=== PATIENT | male | born 1950 | race Asian ===

== ENCOUNTER 2017-08-25 11:01 | Outpatient (CLI) | payer OTHER ==
[2017-08-25] MEDS ORDERED: IOPAMIDOL-300 100 ML VIAL ONE (11:27)
[2017-08-25 11:47] LABS: CREATININE 0.9 mg/dL (0.6-1.2)
[2017-08-25] MEDS ORDERED: IOPAMIDOL-300 100 ML VIAL IVP ONE (12:52)
--- NOTE | 2017-08-25 12:59 | CT Report ---
CT NECK WITH CONTRAST: 08/25/2017 CLINICAL INDICATION: Swelling right jaw, mass. TECHNIQUE: Axial CT images of the neck were obtained with 80 mL Isovue 300 intravenously. COMPARISON: No previous exam is available for comparison. FINDINGS: The visualized intraorbital contents are unremarkable. Chronic sinus disease is seen in the ethmoid air cells and maxillary sinuses. The salivary glands appear unremarkable. The palpable abnormality in the right neck lies superficial to the right jugulodigastric muscle, measuring 3.5 x 2.1 x 1.9 cm, and demonstrates Hounsfield units higher than expected for a simple cyst. This likely represents a necrotic lymph node, given the location and ovoid shape. Other differential considerations would include a complex branchial cleft cyst. Smaller bilateral anterior and posterior triangle lymph nodes are noted. The thyroid gland is unremarkable. The vascular structures enhance normally. Osseous structures demonstrate degenerative changes. Limited evaluation of the lung apices demonstrates a 3.0 x 2.2 x 1.7 cm nodule in the posterior left upper lung. Further evaluation with PET CT would likely be helpful. IMPRESSION: 1. PALPABLE ABNORMALITY LIKELY CORRELATES WITH A NECROTIC LYMPH NODE IN THE RIGHT NECK. COMPLEX BRANCHIAL CLEFT CYST IS FELT TO BE LESS LIKELY. 2. LEFT UPPER LUNG PULMONARY LESION. CONSIDER FURTHER EVALUATION WITH A PET CT. CT DOSE REDUCTION STATEMENT In accordance with CT protocol optimization, one or more of the following dose reduction techniques were utilized for this exam: automated exposure control, adjustment of mA and/or KV based on patient size, or use of iterative reconstructive technique. TD: 08/25/2017 12:48
== END 2017-08-25 11:02 | disposition home or self-care (01) ==
LOC: DI 11:01
PROVIDERS: ATTEND Specialist
DX: R22.1 Localized swelling, mass and lump, neck (principal); R91.1 Solitary pulmonary nodule
CPT/HCPCS: 36415; 70491; 82565; Q9967

== ENCOUNTER 2023-09-03 09:50 | Emergency (ER) | payer OTHER ==
--- NOTE | 2023-09-03 10:04 | ED Physician Documentation ---
PD HPI CHEST PAIN - Stated complaint Stated Complaint: CP - History obtained from History obtained from: Patient - History of Present Illness Timing - onset: How many weeks ago (2-3) Timing - onset during: Light activity, Other (coughing) Timing - duration: Seconds Timing - details: Intermittant (he has had some anterior chest pain occurring with coughing for past 2-3 weeks. NO dyspnea.) Quality: Aching, Pain Location: Substernal, Epigastric Improved by: Rest Worsened by: Other (cough). No: Palpation, Position Associated symptoms: Cough. No: Shortness of air, Nausea, Feeling faint / dizzy Review of Systems Constitutional: denies: Fever, Chills Nose: reports: Congestion. denies: Rhinorrhea / runny nose Throat: denies: Sore throat Cardiac: denies: Pedal edema, Calf pain Respiratory: reports: Dyspnea, Cough. denies: Wheezing PD PAST MEDICAL HISTORY - Past Medical History Cardiovascular: None Respiratory: None - Present Medications Home Medications: Ambulatory Orders Medication Instructions Recorded Confirmed Benzonatate [Tessalon] 100 mg PO TID PRN #20 cap 09/03/23 Meloxicam [Mobic] 7.5 mg PO BID 10 Days #20 tablet 09/03/23 Rosuvastatin Calcium 40 mg PO DAILY 09/03/23 09/03/23 Sucralfate [Carafate] 1 gm PO HS 10 Days #100 ml 09/03/23 metFORMIN [Glucophage] 500 mg PO BIDWM 09/03/23 09/03/23 - Allergies Allergies/Adverse Reactions: Allergies Allergy/AdvReac Type Severity Reaction Status Date / Time No Known Drug Allergies Allergy Verified 09/03/23 10:06 PD ED PE NORMAL - Vitals Vital signs reviewed: Yes - General General: Alert and oriented X 3, No acute distress, Well developed/nourished - HEENT HEENT: Pharynx benign - Neck Neck: Supple, no meningeal sign, No adenopathy - Cardiac Cardiac: RRR, No murmur - Respiratory Respiratory: Clear bilaterally - Abdomen Abdomen: Normal bowel sounds, Soft, Non distended, Other (some tender epigastric area without guarding. Not tender RUQ> ) - Back Back: No CVA TTP - Derm Derm: Normal color, Warm and dry - Extremities Extremities: Normal ROM s pain, No calf tenderness / cord - Neuro Neuro: Alert and oriented X 3, No motor deficit, Normal speech Results - Vitals Vitals: Oxygen O2 Source Room air - EKG (time done) in ER EKG releavant findings:: EKG personally interpreted by author of this note. Relevant findings are: Rhythm: NSR [place]: Normal Intervals: Normal MA QRS: Normal Ischemia: Normal ST segments. No: ST elevation c/w ischemia, ST depression - Labs Labs: Laboratory Tests 09/03/23 09/03/23 10:36 10:36 WBC 9.0 RBC 4.41 L Hgb 13.0 L Hct 40.3 L MCV 91.4 MCH 29.5 MCHC 32.3 RDW 12.5 Plt Count 165 MPV 10.4 Neut # (Auto) 5.5 Lymph # (Auto) 1.6 Wetzel # (Auto) 1.2 H Eos # (Auto) 0.6 Baso # (Auto) 0.1 Absolute Nucleated RBC 0.00 Nucleated RBC % 0.0 Sodium 140 Potassium 4.2 Chloride 106 Carbon Dioxide 25 Anion Gap 9.0 BUN 24 H Creatinine 1.4 H Estimated GFR (MDRD) 50 L Glucose 111 H Calcium 9.4 Magnesium 1.8 Total Bilirubin 0.6 AST 23 ALT 21 Alkaline Phosphatase 46 Troponin I High Sens < 2.3 L Total Protein 7.1 Albumin 4.4 Globulin 2.7 Albumin/Globulin Ratio 1.6 Lipase 56 - Rads (name of study) chest xray Relevant Findings:: Prelim report reviewed (no acute processs. No infiltrates. ), EMP independent interpretation of test PD Medical Decision Making - ED course Complexity details: reviewed results, considered differential (gallo anterior chest pain with coughing with some dyapnea but no wheezing. No infiltrates. Normal ECG and trop. ), d/w patient Departure - Departure Disposition: Home, Self Care Clinical Impression: Cough, persistent, Pleuritic chest pain, Upper abdominal pain Condition: Stable Record reviewed to determine appropriate education?: Yes Prescriptions: Sucralfate [Carafate] 1 gm PO HS 10 Days #100 ml Meloxicam [Mobic] 7.5 mg PO BID 10 Days #20 tablet Benzonatate [Tessalon] 100 mg PO TID PRN #20 cap PRN Reason: Cough Comments: Your EKG and troponin tests are normal. No signs of heart injury or heart failure. Your chest x-ray is clear without any signs of pneumonia or fluid or previous lesions. No obvious scar tissue. At this point it does sound like your stomach pain is probably some irritation of the stomach or gas or heartburn. The famotidine daily for 3 to 4 weeks makes sense. I could also suggest you add sacral fate at night before bedtime to help coat the stomach overnight. Regarding the chest pain with coughing, will primarily try to reduce the cough. You are given a dose of a dexamethasone steroid to help with inflammation of the airways and then I prescribed benzonatate to help with cough. Regarding the pain, I wrote for a anti-inflammatory that is a little easier on the stomach called meloxicam twice daily with food for the next week. Add Tylenol every 4-6 hours if needed for pain. Follow-up with your primary care if not improved over the next several days to week. Forms: PCP List Discharge Date/Time: 09/03/23 12:44
[2023-09-03 10:15] VITALS: O2SAT 100
--- NOTE | 2023-09-03 10:44 | XRAY Report ---
PROCEDURE: Chest 1V INDICATIONS: Chest pain TECHNIQUE: One view of the chest was acquired. COMPARISON: None. FINDINGS: Surgical changes and devices: None. Lungs and pleura: No pleural effusions or pneumothorax. Lungs are clear. Mediastinum: Mediastinal contours appear normal. Heart size is normal. Bones and chest wall: No suspicious bony lesions. Overlying soft tissues appear unremarkable. IMPRESSION: No acute cardiopulmonary process. Reviewed by: Jon Herrera MD on 09/03/2023 9:42 AM JUDAH Approved by: Jon Herrera MD on 09/03/2023 9:42 AM JUDAH Station ID: [id number]
[2023-09-03 10:52] LABS: BASOPHILS # (AUTO) 0.1 10^3/uL (0.0-0.1); BASOPHILS % (AUTO) 0.8 %; EOSINOPHILS # (AUTO) 0.6 10^3/uL (0.0-0.7); EOSINOPHILS % (AUTO) 6.5 %; HCT - HEMATOCRIT 40.3 % (42.0-52.0); LYMPHOCYTES # (AUTO) 1.6 10^3/uL (1.5-3.5); LYMPHOCYTES % (AUTO) 17.8 %; MEAN CORPUSCULAR HEMOGLOBIN 29.5 pg (27.0-31.0); MEAN CORPUSCULAR HGB CONC 32.3 g/dL (32.0-36.0); MEAN CORPUSCULAR VOLUME 91.4 fL (80.0-94.0); MEAN PLATELET VOLUME 10.4 fL (7.4-11.4); MONOCYTES # (AUTO) 1.2 10^3/uL (0.0-1.0); MONOCYTES % (AUTO) 13.5 %; NEUTROPHILS # (AUTO) 5.5 10^3/uL (1.5-6.6); NEUTROPHILS % (AUTO) 61.2 %; PLT - PLATELET COUNT 165 10^3/uL (130-450); RED BLOOD COUNT 4.41 10^6/uL (4.70-6.10); RED CELL DISTRIBUTION WIDTH 12.5 % (12.0-15.0)
[2023-09-03 11:08] LABS: TROPONIN I HIGH SENSITIVITY < 2.3 ng/L (2.3-19.7)
[2023-09-03 11:24] LABS: ALBUMIN 4.4 g/dL (3.2-5.5); ALBUMIN/GLOBULIN RATIO 1.6 (1.0-2.2); ALKALINE PHOSPHATASE 46 IU/L (42-121); ALT ALANINE AMINOTRANSFERASE 21 IU/L (10-60); AST ASPARTATE AMINOTRANSFERASE 23 IU/L (10-42); BILIRUBIN,TOTAL 0.6 mg/dL (0.2-1.0); BUN - BLOOD UREA NITROGEN 24 mg/dL (6-20); CALCIUM 9.4 mg/dL (8.5-10.3); CARBON DIOXIDE - CO2 25 mmol/L (21-32); CHLORIDE 106 mmol/L (101-111); CREATININE 1.4 mg/dL (0.6-1.3); GFR - MDRD 50 (>89); GLUCOSE 111 mg/dL (74-104); LIPASE 56 U/L (11-82); MAGNESIUM 1.8 mg/dL (1.7-2.3); POTASSIUM 4.2 mmol/L (3.5-4.5); SODIUM 140 mmol/L (135-145); TOTAL PROTEIN 7.1 g/dL (6.4-8.9)
[2023-09-03] MEDS: KETOROLAC 15 MG/ML VIAL IVP STA (12:26)
[2023-09-03] MEDS: MAG HYDROX/AL HYDROX/SIMETH 30 ML UDC PO STA (12:26)
[2023-09-03] MEDS: dexAMETHasone 4 MG TABLET PO STA (12:26)
[2023-09-03] MEDS: BENZONATATE 100 MG CAPSULE PO STA (12:26)
[2023-09-03 12:49] VITALS: BP 138/72
== END 2023-09-03 12:44 | disposition home or self-care (01) ==
LOC: ED 09:50
DX: R07.81 Pleurodynia (principal); R05.3 Chronic cough; R10.10 Upper abdominal pain, unspecified; R09.81 Nasal congestion; R06.00 Dyspnea, unspecified
CPT/HCPCS: 36415; 71045; 80053; 83690; 83735; 84484; 85025; 93005; 96374; 99284; A9270; J8540